=== PATIENT | female | born 1975 | race Two or more races ===

== ENCOUNTER 2017-05-31 10:55 | Inpatient (IN) | payer MEDICAID, OTHER ==
[2017-05-31] VITALS (9 sets, daily range): BP systolic 106–132; BP diastolic 54–77
[~2017-05-31] VITALS: Ht 157.5 cm; Wt 91.0 kg
[2017-05-31 12:55] LABS: Basophils # (auto) 0 uL; CONDITION Y; DEFINITIVE SEE PRINTOUT; Eosinophils # (auto) 0.1 uL; Eosinophils % (auto) 1.1 % (0.0-7.0); Hematocrit 26.1 % (36.0-46.0); Hemoglobin 7.8 g/dL (12.2-16.2); Lymphocytes # (auto) 1.3 uL; Lymphocytes % (auto) 12.6 % (10.0-50.0); Mean Corpuscular Hemoglobin 17.1 pg (28.0-32.0); Mean Corpuscular Hgb Conc. 29.8 g/dL (32.0-36.0); Mean Corpuscular Volume 57.5 fL (80.0-100.0); Mean Platelet Volume 7.4 fL (7.4-10.4); Monocytes # (auto) 0.5 uL; Monocytes % (auto) 5.4 % (0.0-12.0); Neutrophils # (auto) 8.2 uL; Neutrophils % (auto) 80.9 % (37.0-80.0); Platelet Count (auto) 318 10^3/uL (140-450); White Blood Cell 10.1 10^3/uL (4.4-10.8)
[2017-05-31] MEDS ORDERED: MORPHINE SULF INJ 2 MG/ML SYRINGE 1ML IV ONE (13:00)
[2017-05-31] MEDS ORDERED: ENOXAPARIN SOD 80 MG/0.8ML SYRINGE SC ONE (13:00)
[2017-05-31] MEDS ORDERED: ONDANSETRON HCL 4 MG/2 ML VIAL IV ONE (13:00)
[2017-05-31 13:08] LABS: Red Cell Distribution Width 20.5 % (11.6-16.0)
[2017-05-31 13:09] LABS: INR 0.92 (0.9-1.15); Partial Thromboplastin Time 24.5 sec (22.64-33.71)
[2017-05-31 13:17] LABS: Potassium 4.2 mmol/L (3.5-5.1)
[2017-05-31 13:21] LABS: Albumin 3.5 g/dL (3.4-5.0); BUN/Creatinine Ratio 20.5; Calcium 8.7 mg/dL (8.5-10.1)
[2017-05-31 13:36] LABS: Bilirubin, Total 0.3 mg/dL (0.2-1.0)
[2017-05-31] MEDS ORDERED: SODIUM CHLORIDE 0.9% 1,000 ML IV ONE (13:45)
[2017-05-31] MEDS ORDERED: NITROGLYCERIN 0.4 MG SL TAB SL PRN (13:45)
[2017-05-31] MEDS ORDERED: ACETAMINOPHEN 500 MG TAB PO PRN (13:45)
[2017-05-31] MEDS ORDERED: LORazepam 0.5 MG TAB PO PRN (13:45)
[2017-05-31] MEDS ORDERED: MORPHINE SULF INJ 2 MG/ML SYRINGE 1ML IV PRN (13:45)
[2017-05-31] MEDS ORDERED: PANTOPRAZOLE 40 MG/10 ML VIAL IV ONE (13:45)
[2017-05-31] MEDS ORDERED: LACTULOSE 20Gm/30ML SOLN PO PRN (13:45)
[2017-05-31] MEDS ORDERED: TEMAZEPAM 15 MG CAP PO PRN (13:45)
[2017-05-31] MEDS ORDERED: WARFARIN SODIUM 10 MG TAB PO ONE (14:00)
[2017-05-31 14:29] LABS: Anisocytosis Marked; Hypochromia Marked; Microcytosis Marked; Platelet Estimate Adequate
[2017-05-31 14:30] LABS: Ovalocytes MODERATE; Schistocytes FEW
[2017-05-31] MEDS: HYDROcodone-ACET 5/325MG TAB PO PRN (15:43)
[2017-05-31] MEDS ORDERED: IOHEXOL 350 MG/ML 100ML IJ ONE (17:21)
[2017-05-31 17:27] LABS: Hematocrit 25.5 % (36.0-46.0); Hemoglobin 7.4 g/dL (12.2-16.2)
[2017-05-31 18:56] LABS: Urine Bilirubin Negative (Negative); Urine Blood Negative /uL (Negative); Urine Color Yellow (Yellow); Urine Glucose Normal (Normal); Urine Ketone Negative (Negative); Urine RBC 2 /hpf (0 - 4); Urine Squamous Epithelial Cell FEW /hpf (<5); Urine Urobilinogen Normal (Negative); Urine pH 5.5 (5.0-8.0)
[2017-05-31 19:28] LABS: Urine Nitrite POSITIVE (Negative)
[2017-05-31] MEDS: ENOXAPARIN SOD 80 MG/0.8ML SYRINGE SC SCH (21:58)
[2017-06-01] VITALS (7 sets, daily range): BP systolic 113–145; BP diastolic 66–82
[2017-06-01] MEDS: HYDROcodone-ACET 5/325MG TAB PO PRN ×2 (00:09→21:23)
[2017-06-01 06:37] LABS: Hematocrit 31.8 % (36.0-46.0); Hemoglobin 9.9 g/dL (12.2-16.2)
[2017-06-01 06:56] LABS: Partial Thromboplastin Time 29.9 sec (22.64-33.71); Prothrombin Time 10.9 sec (9.37-12.3)
[2017-06-01 06:58] LABS: Cholesterol 162 mg/dL (< 200); HDL Cholesterol 41 mg/dL (40-59); LDL Cholesterol 107 mg/dL (< 100); Triglycerides 290 mg/dL (< 150)
[2017-06-01] MEDS: ENOXAPARIN SOD 80 MG/0.8ML SYRINGE SC SCH (10:35)
[2017-06-01] MEDS: PANTOPRAZOLE 40 MG TAB PO SCH (10:35)
[2017-06-01] MEDS: MORPHINE SULFATE 4 MG/ML SYRG IV PRN ×2 (13:41→17:51)
[2017-06-01] MEDS ORDERED: WARFARIN SODIUM 10 MG TAB PO ONE (17:00)
[2017-06-01] MEDS: PROMETHAZINE HCL 25 MG/ML 1ML IV PRN (19:35)
[2017-06-01] MEDS: APIXABAN 5 MG TAB PO SCH (21:23)
[2017-06-02 04:59] VITALS: BP 108/68
[2017-06-02 07:13] LABS: Basophils # (auto) 0 uL; CONDITION Y; DEFINITIVE SEE PRINTOUT; Eosinophils # (auto) 0 uL; Eosinophils % (auto) 0.1 % (0.0-7.0); Hematocrit 31.3 % (36.0-46.0); Hemoglobin 9.6 g/dL (12.2-16.2); Lymphocytes # (auto) 1.3 uL; Mean Corpuscular Hemoglobin 19.9 pg (28.0-32.0); Mean Corpuscular Hgb Conc. 30.8 g/dL (32.0-36.0); Mean Corpuscular Volume 64.7 fL (80.0-100.0); Mean Platelet Volume 7.4 fL (7.4-10.4); Monocytes % (auto) 5.7 % (0.0-12.0); Neutrophils # (auto) 14.4 uL; Neutrophils % (auto) 86.2 % (37.0-80.0); Platelet Count (auto) 287 10^3/uL (140-450); SUSPECT SEE PRINTOUT; White Blood Cell 16.7 10^3/uL (4.4-10.8)
[2017-06-02 07:14] LABS: Red Cell Distribution Width 31.1 % (11.6-16.0)
[2017-06-02 07:24] LABS: INR 1.37 (0.9-1.15)
[2017-06-02 07:32] LABS: Calcium 8.2 mg/dL (8.5-10.1); Potassium 3.7 mmol/L (3.5-5.1)
[2017-06-02 07:33] LABS: Anisocytosis Slight; Hypochromia Marked; Microcytosis Marked; Platelet Estimate Adequate
[2017-06-02 07:34] LABS: BUN/Creatinine Ratio 18.5
[2017-06-02 08:00] VITALS: BP 127/72
[2017-06-02 08:52] VITALS: BP 127/72
[2017-06-02] MEDS: APIXABAN 5 MG TAB PO SCH ×2 (10:12→21:24)
[2017-06-02] MEDS: PANTOPRAZOLE 40 MG TAB PO SCH (10:12)
[2017-06-02] MEDS ORDERED: cefTRIAXone 1GM/50ML D5W 50 ML IV ONE (11:00)
[2017-06-02] MEDS: HYDROcodone-ACET 5/325MG TAB PO PRN ×2 (11:15→21:25)
[2017-06-02 11:31] VITALS: BP 137/78
[2017-06-02 17:07] VITALS: BP 137/80
[2017-06-02] MEDS: LACTULOSE 20Gm/30ML SOLN PO PRN (21:25)
[2017-06-02 22:00] VITALS: BP 130/76
[2017-06-03 05:00] VITALS: BP 143/79
[2017-06-03] MEDS: HYDROcodone-ACET 5/325MG TAB PO PRN (05:48)
[2017-06-03 06:19] LABS: Basophils # (auto) 0 uL; Basophils % (auto) 0.4 % (0.0-2.0); CONDITION Y; DEFINITIVE SEE PRINTOUT; Eosinophils # (auto) 0.1 uL; Hemoglobin 9.9 g/dL (12.2-16.2); Lymphocytes # (auto) 1.2 uL; Lymphocytes % (auto) 12.3 % (10.0-50.0); Mean Corpuscular Hemoglobin 19.6 pg (28.0-32.0); Mean Corpuscular Hgb Conc. 30.8 g/dL (32.0-36.0); Mean Corpuscular Volume 63.8 fL (80.0-100.0); Mean Platelet Volume 7.5 fL (7.4-10.4); Monocytes # (auto) 0.7 uL; Monocytes % (auto) 7.1 % (0.0-12.0); Neutrophils # (auto) 7.8 uL; Neutrophils % (auto) 79.2 % (37.0-80.0); Platelet Count (auto) 282 10^3/uL (140-450); SUSPECT SEE PRINTOUT; White Blood Cell 9.9 10^3/uL (4.4-10.8)
[2017-06-03 06:34] LABS: Red Cell Distribution Width 31.8 % (11.6-16.0)
[2017-06-03 07:34] LABS: Anisocytosis Moderate; Hypochromia Slight; Platelet Estimate Adequate
[2017-06-03 07:37] LABS: Microcytosis Slight; Ovalocytes FEW
[2017-06-03 09:00] VITALS: BP 140/85
[2017-06-03] MEDS: cefTRIAXone 1GM/50ML D5W 50 ML IV SCH (09:00)
[2017-06-03] MEDS: PANTOPRAZOLE 40 MG TAB PO SCH (10:03)
[2017-06-03] MEDS: APIXABAN 5 MG TAB PO SCH ×2 (10:03→21:38)
[2017-06-03 12:00] VITALS: BP 141/86
[2017-06-03 12:02] LABS: Hematocrit 30.6 % (36.0-46.0); Hemoglobin 9.5 g/dL (12.2-16.2)
[2017-06-03] MEDS: LACTULOSE 20Gm/30ML SOLN PO PRN (15:15)
[2017-06-03] MEDS: PROMETHAZINE HCL 25 MG/ML 1ML IV PRN (15:39)
[2017-06-03 17:00] VITALS: BP 134/82
[2017-06-03 20:00] VITALS: BP 128/77
[2017-06-03 22:00] VITALS: BP 128/77
[2017-06-04 04:00] VITALS: BP 124/64
[2017-06-04] MEDS: HYDROcodone-ACET 5/325MG TAB PO PRN ×2 (06:22→14:52)
[2017-06-04 08:00] VITALS: BP 135/75
[2017-06-04] MEDS: APIXABAN 5 MG TAB PO SCH (08:47)
[2017-06-04] MEDS: cefTRIAXone 1GM/50ML D5W 50 ML IV SCH (08:47)
[2017-06-04] MEDS: PANTOPRAZOLE 40 MG TAB PO SCH (08:47)
[2017-06-04] MEDS ORDERED: LEVO500T21 PO (10:05)
[2017-06-04 13:00] VITALS: BP 124/74
[2017-06-04 16:40] VITALS: BP 134/84
[2017-06-08] MEDS ORDERED: APIXABAN 5 MG TAB PO SCH (22:00)
== END 2017-06-04 17:30 | disposition home or self-care (01) | DRG 197 ==
LOC: ER 10:55 → TELE 10:56 → TELE-E-ADS 14:49 → TELE-EAST 15:53
PROVIDERS: ADMIT Internal Medicine; ATTEND Internal Medicine
DX: I82.432 Acute embolism and thrombosis of left popliteal vein (principal); I26.99 Other pulmonary embolism without acute cor pulmonale; I27.2 Other secondary pulmonary hypertension; D50.9 Iron deficiency anemia, unspecified; E66.9 Obesity, unspecified; N39.0 Urinary tract infection, site not specified; B96.20 Unspecified Escherichia coli [E. coli] as the cause of diseases classified elsewhere; K59.00 Constipation, unspecified; Z79.01 Long term (current) use of anticoagulants; Z82.49 Family history of ischemic heart disease and other diseases of the circulatory system; Z83.3 Family history of diabetes mellitus; Z90.49 Acquired absence of other specified parts of digestive tract; Z98.51 Tubal ligation status; Z68.36 Body mass index [BMI] 36.0-36.9, adult
CPT/HCPCS: 36415; 71010; 71275; 80048; 80053; 80061; 81001; 81241; 82150; 82270; 82378; 83540; 83550; 83690; 84702; 85014; 85018; 85025; 85045; 85302; 85305; 85306; 85610; 85613; 85652; 85670; 85705; 85730; 85732; 86141; 86850; 86900; 86901; 86920; 87086; 87088; 87186; 93306; 93971; 96372; 96374; 96375; C9113; J0696; J2405

== ENCOUNTER 2017-06-07 18:45 | Inpatient (IN) | payer MEDICAID ==
[~2017-06-07] VITALS: Ht 157.5 cm; Wt 82.1 kg
[~2017-06-07 18:45] MED LIST: LEVO500T21 PO
[2017-06-07 20:26] LABS: CONDITION Y; DEFINITIVE SEE PRINTOUT; Eosinophils # (auto) 0.1 uL; Eosinophils % (auto) 0.7 % (0.0-7.0); Lymphocytes # (auto) 1.4 uL; Monocytes # (auto) 0.5 uL; SUSPECT SEE PRINTOUT
[2017-06-07 20:31] LABS: Urine Bilirubin Negative (Negative); Urine Color Yellow (Yellow); Urine Glucose Normal (Normal); Urine Ketone Negative (Negative); Urine Mucus FEW (None Seen); Urine Nitrite Negative (Negative); Urine RBC 4 /hpf (0 - 4); Urine Squamous Epithelial Cell FEW /hpf (<5); Urine Urobilinogen Normal (Negative)
[2017-06-07 20:32] LABS: Urine Blood 1+ /uL (Negative)
[2017-06-07 20:34] LABS: Basophils # (auto) 0.1 uL; Basophils % (auto) 0.4 % (0.0-2.0); Hematocrit 33.5 % (36.0-46.0); Hemoglobin 10.3 g/dL (12.2-16.2); Lymphocytes % (auto) 11.2 % (10.0-50.0); Mean Corpuscular Hemoglobin 19.8 pg (28.0-32.0); Mean Corpuscular Hgb Conc. 30.6 g/dL (32.0-36.0); Mean Corpuscular Volume 64.7 fL (80.0-100.0); Mean Platelet Volume 7.4 fL (7.4-10.4); Monocytes % (auto) 4.2 % (0.0-12.0); Neutrophils # (auto) 10.2 uL; Neutrophils % (auto) 83.5 % (37.0-80.0); Platelet Count (auto) 450 10^3/uL (140-450); White Blood Cell 12.2 10^3/uL (4.4-10.8)
[2017-06-07 20:35] LABS: Chloride 105 mmol/L (98-107); Potassium 4.1 mmol/L (3.5-5.1); Sodium 139 mmol/L (136-145)
[2017-06-07 20:38] LABS: Red Cell Distribution Width 31.5 % (11.6-16.0)
[2017-06-07 20:39] LABS: Albumin 3.6 g/dL (3.4-5.0); Amylase 12 U/L (25-115); Anion Gap 11 (5-15); Aspartate Aminotransferase 7 U/L (15-37); BUN/Creatinine Ratio 16.4; Blood Urea Nitrogen 19 mg/dL (7-18); Calcium 8.8 mg/dL (8.5-10.1); Carbon Dioxide 23 mmol/L (21-32); GFR African American 67 mL/min; GFR Non-African American 55 mL/min; Glucose 111 mg/dL (74-106); INR 0.95 (0.9-1.15); Magnesium 2.4 mg/dL (1.6-2.6); Partial Thromboplastin Time 28.5 sec (22.64-33.71); Prothrombin Time 10.4 sec (9.37-12.3)
[2017-06-07 20:45] LABS: Alkaline Phosphatase 74 U/L (45-117); Bilirubin, Total 0.2 mg/dL (0.2-1.0)
[2017-06-07 20:52] LABS: Anisocytosis Moderate; Hypochromia Moderate; Microcytosis Moderate; Ovalocytes FEW; Platelet Estimate Adequate; Tear Drop Cells FEW
[2017-06-07] MEDS ORDERED: cefTRIAXone 1GM/50ML D5W 50 ML IV ONE (22:30)
[2017-06-07] MEDS ORDERED: KETOROLAC TROMETH 30 MG/ML 1ML VIAL IV ONE (22:30)
[2017-06-07 22:36] LABS: Magnesium 2.4 mg/dL (1.6-2.6)
[2017-06-08] MEDS: SODIUM CHLORIDE 0.9% 1,000 ML IV SCH ×3 (00:05→22:29)
[2017-06-08] MEDS ORDERED: KETOROLAC TROMETH 30 MG/ML 1ML VIAL IV PRN (00:15)
[2017-06-08] MEDS ORDERED: ACETAMINOPHEN 325 MG TAB PO PRN (00:15)
[2017-06-08] MEDS ORDERED: TEMAZEPAM 15 MG CAP PO PRN (00:15)
[2017-06-08] MEDS ORDERED: ONDANSETRON HCL 4 MG/2 ML VIAL IV PRN (00:15)
[2017-06-08] MEDS ORDERED: HYDROcodone-ACET 5/325MG TAB PO PRN (00:15)
[2017-06-08] MEDS ORDERED: SODIUM CHLORIDE 0.9% 500 ML IV ONE (00:15)
[2017-06-08] MEDS ORDERED: TAMSULOSIN HYDROCHLORIDE 0.4 MG CAP PO ONE (00:15)
[2017-06-08 01:15] VITALS: BP 111/73
[2017-06-08 05:00] VITALS: BP 115/68
[2017-06-08] MEDS ORDERED: cefTRIAXone 1GM/50ML D5W 50 ML IV SCH (09:00)
[2017-06-08 09:14] VITALS: BP 133/71
[2017-06-08] MEDS: FAMOTIDINE 20 MG TAB PO SCH ×2 (09:36→22:20)
[2017-06-08 13:00] VITALS: BP 138/84
[2017-06-08 16:52] VITALS: BP 132/80
[2017-06-08] MEDS: LEVOFLOXACIN 500 MG TAB PO SCH (19:26)
[2017-06-08 22:00] VITALS: BP 152/77
[2017-06-09 05:00] VITALS: BP 120/54
[2017-06-09 05:48] LABS: Basophils # (auto) 0.1 uL; Basophils % (auto) 0.8 % (0.0-2.0); CONDITION Y; DEFINITIVE SEE PRINTOUT; Eosinophils # (auto) 0.2 uL; Eosinophils % (auto) 2.4 % (0.0-7.0); Hematocrit 29.4 % (36.0-46.0); Hemoglobin 9.1 g/dL (12.2-16.2); Lymphocytes # (auto) 1.4 uL; Lymphocytes % (auto) 17.1 % (10.0-50.0); Mean Corpuscular Hemoglobin 19.9 pg (28.0-32.0); Mean Corpuscular Hgb Conc. 30.9 g/dL (32.0-36.0); Mean Corpuscular Volume 64.6 fL (80.0-100.0); Mean Platelet Volume 7.4 fL (7.4-10.4); Monocytes # (auto) 0.4 uL; Monocytes % (auto) 5.4 % (0.0-12.0); Neutrophils # (auto) 6.2 uL; Neutrophils % (auto) 74.3 % (37.0-80.0); Platelet Count (auto) 435 10^3/uL (140-450); SUSPECT SEE PRINTOUT; White Blood Cell 8.4 10^3/uL (4.4-10.8)
[2017-06-09 06:00] LABS: Red Cell Distribution Width 31.2 % (11.6-16.0)
[2017-06-09 06:08] LABS: Albumin 2.8 g/dL (3.4-5.0); Calcium 8.3 mg/dL (8.5-10.1); Potassium 4.4 mmol/L (3.5-5.1)
[2017-06-09 06:11] LABS: BUN/Creatinine Ratio 14.3
[2017-06-09 06:13] LABS: Bilirubin, Total 0.2 mg/dL (0.2-1.0); Total Protein 6.7 g/dL (6.4-8.2)
[2017-06-09 08:52] LABS: Microcytosis Marked; Platelet Estimate Adequate
[2017-06-09 08:53] LABS: Anisocytosis Marked; Hypochromia Marked
[2017-06-09 08:54] LABS: Ovalocytes FEW
[2017-06-09 09:00] VITALS: BP 119/67
[2017-06-09] MEDS: SODIUM CHLORIDE 0.9% 1,000 ML IV SCH (09:26)
[2017-06-09] MEDS: FAMOTIDINE 20 MG TAB PO SCH (10:41)
[2017-06-09] MEDS: LEVOFLOXACIN 500 MG TAB PO SCH (10:41)
[2017-06-09 13:00] VITALS: BP_SYST 130; BP_SYST 135; BP_DIAS 86; BP_DIAS 88
[2017-06-09 16:17] VITALS: BP 135/88
[2017-06-15] MEDS ORDERED: APIXABAN 5 MG TAB PO SCH (10:00)
== END 2017-06-09 20:30 | disposition home or self-care (01) | DRG 465 ==
LOC: ER 18:47 → OVERFLOW 18:48 → WEST WING 06-08 01:10
PROVIDERS: ADMIT Nurse Practitioner; ATTEND Internal Medicine Pulmonary Disease
DX: N13.2 Hydronephrosis with renal and ureteral calculous obstruction (principal); N39.0 Urinary tract infection, site not specified; D25.9 Leiomyoma of uterus, unspecified; D50.9 Iron deficiency anemia, unspecified; N83.202 Unspecified ovarian cyst, left side; Z86.718 Personal history of other venous thrombosis and embolism; Z86.711 Personal history of pulmonary embolism; Z82.49 Family history of ischemic heart disease and other diseases of the circulatory system; Z83.3 Family history of diabetes mellitus
CPT/HCPCS: 36415; 71010; 74176; 80053; 81001; 81025; 82150; 83690; 83735; 84484; 84702; 85025; 85610; 85730; 87086; 94761; 96365; 96375; J0696; J1885

== ENCOUNTER 2017-09-09 16:46 | Emergency (ER) | payer MEDICAID ==
[~2017-09-09] VITALS: Ht 154.9 cm; Wt 81.6 kg
[2017-09-09 17:37] LABS: Basophils # (auto) 0.1 uL; Eosinophils # (auto) 0.1 uL; Mean Platelet Volume 6.9 fL (6.9-10.8); Monocytes # (auto) 0.4 uL; Neutrophils # (auto) 4.8 uL; Neutrophils % (auto) 66.1 % (37.0-80.0)
[2017-09-09 17:38] LABS: Basophils % (auto) 1.1 % (0.0-2.0); Eosinophils % (auto) 1.2 % (0.0-7.0); Hematocrit 36.6 % (36.0-46.0); Hemoglobin 11.2 g/dL (12.2-16.2); Lymphocytes # (auto) 1.9 uL; Lymphocytes % (auto) 25.4 % (10.0-50.0); Mean Corpuscular Hemoglobin 21.5 pg (28.0-32.0); Mean Corpuscular Hgb Conc. 30.6 g/dL (32.0-36.0); Mean Corpuscular Volume 70.3 fL (80.0-100.0); Monocytes % (auto) 6.2 % (0.0-12.0); Platelet Count (auto) 429 10^3/uL (140-450); Red Cell Distribution Width 17.1 % (11.8-14.3); White Blood Cell 7.3 10^3/uL (4.4-10.8)
[2017-09-09 17:57] LABS: Albumin 3.9 g/dL (3.4-5.0); Anion Gap 9 (5-15); Aspartate Aminotransferase 12 U/L (15-37); BUN/Creatinine Ratio 16.7; Blood Urea Nitrogen 12 mg/dL (7-18); Calcium 9.2 mg/dL (8.5-10.1); Carbon Dioxide 26 mmol/L (21-32); Chloride 103 mmol/L (98-107); GFR African American 115 mL/min; GFR Non-African American 95 mL/min; Glucose 116 mg/dL (74-106); Magnesium 2.2 mg/dL (1.6-2.6); Potassium 3.6 mmol/L (3.5-5.1); Sodium 138 mmol/L (136-145)
[2017-09-09 18:02] LABS: Alkaline Phosphatase 66 U/L (45-117); Bilirubin, Total 0.1 mg/dL (0.2-1.0)
[2017-09-09] MEDS ORDERED: IOHEXOL 350 MG/ML 100ML IJ ONE (19:55)
[2017-09-09 20:54] VITALS: BP 125/69
== END 2017-09-09 21:42 | disposition home or self-care (01) ==
LOC: ER 16:50
DX: R07.89 Other chest pain (principal); Z79.899 Other long term (current) drug therapy; Z87.442 Personal history of urinary calculi; Z90.49 Acquired absence of other specified parts of digestive tract; Z98.51 Tubal ligation status; Z86.718 Personal history of other venous thrombosis and embolism
CPT/HCPCS: 36415; 71010; 71260; 80053; 83735; 84484; 85025; 85379; 93005; 93971; 94761; 99285; Q9967

== ENCOUNTER 2018-07-24 17:12 | Emergency (ER) | payer MEDICAID ==
[~2018-07-24] VITALS: Ht 154.9 cm; Wt 80.7 kg
[2018-07-24 17:51] VITALS: BP 132/92
[2018-07-25] MEDS ORDERED: DEXAMETHASONE SOD PHOS 10MG/1ML VIAL INJ ONE (05:12)
== END 2018-07-24 22:02 | disposition left against medical advice (07) ==
LOC: ER 17:22
DX: M25.512 Pain in left shoulder (principal); M25.552 Pain in left hip; Z53.21 Procedure and treatment not carried out due to patient leaving prior to being seen by health care provider

== ENCOUNTER 2018-07-26 13:43 | Emergency (ER) | payer MEDICAID ==
[~2018-07-26] VITALS: Ht 157.5 cm; Wt 81.6 kg
[2018-07-26 16:45] VITALS: BP 131/90
== END 2018-07-26 17:02 | disposition home or self-care (01) ==
LOC: ER 13:43
DX: M25.552 Pain in left hip (principal); Z90.710 Acquired absence of both cervix and uterus; Z90.49 Acquired absence of other specified parts of digestive tract; Z86.711 Personal history of pulmonary embolism; Z87.442 Personal history of urinary calculi
CPT/HCPCS: 93971